=== PATIENT | female | born 1985 | race Two or more races ===

== ENCOUNTER 2021-10-07 00:54 | Emergency (ER) | payer SELFPAY ==
[~2021-10-07] VITALS: Ht 167.6 cm; Wt 54.4 kg
--- NOTE | 2021-10-07 00:57 | NUR ---
DANNA ADAMSON. TAKEN TO BED 1
[2021-10-07 01:01] VITALS: BP 132/84
--- NOTE | 2021-10-07 01:01 | NUR ---
35 Y/O FEMALE BIBA FROM HOME, C/O ETOHX1 HR. EMS STATES PT WAS DRINKING AT HOME, FAMILY CALLED PD ABOUT PT BEING UNRULY. PT COMPLAINED TO PD OF C/P AND ANXIETY. PER EMS, PD STATED PT WAS ALOC. UPON ASSESSMENT BY MEDICS EN ROUTE PT IS A/OX4, DENIES C/P. PT HAD UNKNOWN AMOUNT OF ALCOHOL. PT IS A/OX4, GCS-15; UNLABORED BREATHING, SPEAKING IN FULL SENTENCES WITH SLIGHT SLUR FROM ETOH; AMBULATORY W/O ASSISTANCE. DENIES N/V/D, COUGH, FEVER, CP, OR SOB. SKIN IS PINK/DRY/WARM. DENIES PMH/RX NO MEDS
--- NOTE | 2021-10-07 01:19 | NUR ---
ERMD EXAMINING PT
--- NOTE | 2021-10-07 01:30 | NUR ---
XRAY AT BEDSIDE
--- NOTE | 2021-10-07 02:22 | NUR ---
Patient discharged with v/s stable. Written and verbal after care instructions given and explained. Patient verbalized understanding. Ambulatory with steady gait. All questions addressed prior to discharge. Advised to follow up with PMD. VSS, A/OX4, AMBULATORY, UNLABORED BREATHING, AND CALM DEMEANOR.
[2021-10-07 02:23] VITALS: BP 128/74
== END 2021-10-07 02:22 | disposition home or self-care (01) ==
LOC: MED 00:54
DX: R07.89 Other chest pain (principal); F10.129 Alcohol abuse with intoxication, unspecified; F41.9 Anxiety disorder, unspecified
CPT/HCPCS: 71045; 99283; Q0092